=== PATIENT | male | born 1965 | race Two or more races ===

== ENCOUNTER 2024-05-05 13:02 | Emergency (ER) | payer MEDICAID, OTHER ==
[~2024-05-05] VITALS: Ht 185.4 cm; Wt 110.0 kg
[2024-05-05] MEDS: ONDANSETRON HCL 4 MG/2 ML VIAL IV ONE (14:52)
[2024-05-05] MEDS: TETANUS-DIPTH-ACEL PERTUSSIS 0.5ML SYR Tdap IM ONE (14:52)
[2024-05-05] MEDS: MORPHINE SULFATE 4 MG/ML SYR/VIAL IV ONE ×2 (14:53→19:00)
[2024-05-05] MEDS: ceFAZolin 1GM/50ML 50 ML IV ONE (14:59)
[2024-05-05 15:00] VITALS: PULSE 66; RESP 18; O2SAT 96
[2024-05-05] MEDS: HYDROmorphone HCL 2 MG/ML VL/or syr IV ONE (15:30)
[2024-05-05 15:38] LABS: Basophils # (auto) 0 10 ^3/uL (0-0.2); Basophils % (auto) 0.2 % (0.0-2.0); Eosinophils # (auto) 0 10 ^3/uL (0-0.8); Hematocrit 42.7 % (41.0-53.0); Hemoglobin 14.7 g/dL (13.5-17.5); Lymphocytes # (auto) 0.9 10 ^3/uL (0.4-5.4); Lymphocytes % (auto) 5.3 % (10.0-50.0); Mean Corpuscular Hemoglobin 30.9 pg (28.0-32.0); Mean Corpuscular Hgb Conc. 34.5 g/dL (32.0-36.0); Mean Corpuscular Volume 89.4 fL (80.0-100.0); Monocytes # (auto) 0.8 10 ^3/uL (0-1.3); Monocytes % (auto) 5.1 % (0.0-12.0); Neutrophils # (auto) 14.7 10 ^3/uL (1.6-8.6); Neutrophils % (auto) 89.4 % (37.0-80.0); Platelet Count (auto) 335 10^3/uL (140-450); Red Blood Cells 4.78 10^6/uL (4.5-5.90); Red Cell Distribution Width 14.5 % (11.8-14.3); White Blood Cell 16.5 10^3/uL (4.4-10.8)
[2024-05-05 15:45] LABS: Chloride 109 mmol/L (98-107); Sodium 139 mmol/L (136-145)
[2024-05-05 15:46] LABS: Anion Gap 9 (5-15); Calcium 9.5 mg/dL (8.7-10.4); Carbon Dioxide 21 mmol/L (20-30)
[2024-05-05 15:51] LABS: BUN/Creatinine Ratio 22.2 (10.0-20.0); Blood Urea Nitrogen 22 mg/dL (9-23); Glucose 144 mg/dL (74-106)
[2024-05-05 16:12] LABS: INR 1.04 (0.9-1.15); Partial Thromboplastin Time 28.5 SEC (24.5-34.5)
[2024-05-05] MEDS: hydrALAZINE HCL 20 MG/ML VL IV ONE (17:00)
[2024-05-05] MEDS: LIDOCAINE 2%HCL (LOCAL ANESTH.) INJ 10ml MDV ONE (17:27)
[2024-05-05 19:44] VITALS: PULSE 96; RESP 16; O2SAT 96
[2024-05-05 23:29] VITALS: BP 168/79; PULSE 94; RESP 14; TEMP 98.5; O2SAT 95
== END 2024-05-05 23:35 | disposition short-term general hospital (02) ==
LOC: EDBD 13:02 → ER 13:02
DX: S52.571A Other intraarticular fracture of lower end of right radius, initial encounter for closed fracture (principal); S92.311A Displaced fracture of first metatarsal bone, right foot, initial encounter for closed fracture; S52.501A Unspecified fracture of the lower end of right radius, initial encounter for closed fracture; S82.831A Other fracture of upper and lower end of right fibula, initial encounter for closed fracture; S62.634A Displaced fracture of distal phalanx of right ring finger, initial encounter for closed fracture; V29.99XA Rider (driver) (passenger) of other motorcycle injured in unspecified traffic accident, initial encounter; Y93.55 Activity, bike riding; Y92.488 Other paved roadways as the place of occurrence of the external cause; Y99.8 Other external cause status
CPT/HCPCS: 12002; 29125; 29515; 36415; 73090; 73130; 73560; 73590; 80048; 85025; 85610; 85730; 90471; 90715; 96365; 96375; 96376; 99285; J0360; J0690; J2001; J2270; J2405